=== PATIENT | female | born 2000 | race Two or more races ===

== ENCOUNTER 2025-03-03 14:24 | Outpatient (AMB) | payer BC, SELFPAY ==
[2025-03-03 14:44] VITALS: BP 127/77; PULSE 65; RESP 17; TEMP 36.7; O2SAT 98; BMI 25.9
--- NOTE | 2025-03-03 14:44 | OBCLNT_ITS ---
Vital Signs 03/03/25 14:44 Height 1.6 m Height Method Stated Weight 66.451 kg Weight Measurement Method Standing Scale BMI 25.9 BP 127/77 Blood Pressure Source Automatic Cuff Blood Pressure Location Right Upper Arm Position Sitting Respiration 17 Pulse 65 Pulse Source Monitor Temp 98.0 F Temp Source Temporal Artery Scan Pulse Oximetry (%) 98 Oxygen Delivery Method Room Air Allergies/Home Meds Allergies & Medications Allergies No Known Allergies Allergy (Verified 03/03/25 14:45) Medication Reconciliation doxylamine 10 mg-pyridoxine (vit B6) 10 mg tablet,delayed release (Diclegis) 1 tab PO BID #30 tabs 03/05/25 [Rx] ondansetron 4 mg disintegrating tablet 4 mg PO Q6H PRN nausea and vomiting #60 tabs 03/05/25 [Rx] Intake Visit Data Collection New Patient or Established: New Patient (never been to [facility]) Reason for Visit:: OBI Seen by Clinical Staff ONLY (RN/MA): No Compliance Review Specialist Required: No Do You Feel Safe at Home: Yes Authorities Contacted: N/A PCP or OBGYN visit in last 3 months: No Hx Now: Yes Are you currently on any form of Control: No Last menstrual period: 01/07/25 Pain Present Currently: No Pain Scale Used: Garzon-Foley/Numerical Pain scale:: 0 Smoking Status Smoking Status: Never smoker Questionnaires Covid-19 Vaccine Questionnaire Has patient been vacinated for Covid-19 Have you been vacinated for Covid-19: No PHQ-9 PHQ-2 Over the last 2 weeks, how often have you been bothered by any of the following problems? 1. Little interest or pleasure in doing things: not at all 2. Feeling down, depressed, or hopeless: not at all Total score: 0 PHQ-9 3. Trouble falling or staying asleep, or sleeping too much: Not at all 4. Feeling tired or having little energy: Not at all 5. Poor appetite or overeating: Not at all 6. Feeling bad about yourself - or that you are a failure or have let yourself or your family down: Not at all 7. Trouble concentrating on things, such as reading the newspaper or watching television: Not at all 8. Moving or speaking so slowly that other people could have noticed? - Or the opposite - being so fidgety or restless that you have been moving around a lot more than usual: not at all 9. Thoughts that you would be better off or of hurting yourself in some way: Not at all Total score: 0 If you checked off any problems, how difficult have these problems made it for you to do your work, take care of things at home, or get along with other people?: not difficult at all Source: Developed by Drs. Refugio Adams, Lillian Coronado, Ruben Ross and colleagues, with an educational shanta from [employer].. Depression screen completed yes Social History Living Situation History Marital Status: Lives With: Spouse Housing: House Housing Other:: Stays home. Spouse is a internet ecommerce specialist. Two sons age 1 1/2 and almost 4 Tobacco History Smoking Status: Never smoker Second Hand Smoke Exposure: No Alcohol History Alcohol Intake: Never Domestic Abuse History Do You Feel Safe at Home: Yes History of Present Illness HPI Narrative The patient is a 24 y/o who presents for a new OB appointment. She used to see me in [place] and I delivered her other two children. She is approximately 8 weeks . By LMP and US today her EDC is 10/10/25. LMP was 01/07/25. She is present with her spouse who is a internet ecommerce specialist. She reports constant nausea and does not want to eat. She feels like she wants to throw up all the time but rarely vomits. No weight loss. She has a 3 1/2 y/o son and 1 1/2 y/o son and both are busy. She stays home with them. She is ok with trying diglegis and zofran for N/V. OB Ultrasound Indication Indication: Size dates and viability OB Ultrasound Ultrasound technique: transabdominal Gestational sac assessment: Presence, location, size, shape: There is a live IUP with a CRL of 2.04 cm corresponding to 8 weeks and 4 days and an EDC of 10/10/25. 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 Had a pap last year. No VB or cramping. Fairly severe nausea with very little vomiting. Menstrual History Menstrual reliability: definite Flow: normal Menstrual regularity: irregular Monthly: Yes Age at menarche: 14 On control pills at conception: No Menstrual history comments: LMP 01/07/25 Associated symptoms (LMP): Reports nausea, fatigue and breast tenderness OB History : 3 Para: 2 # of Living Children: 2 Infection History & Risk Evaluation History of STDs: none HIV risk evaluation: low risk Hepatitis B risk evaluation: low risk Patient or partner has history of Genital Herpes: No Varicella/chicken pox status: unknown Genetic Screening & History Genetic Screening/Teratology Counseling - Includes patient, baby's father, or anyone in either family with: 1. Patient's age 35 years or older as of estimated date of delivery: No 2. Thalassemia (French, Chadian, Mediterranean, or Background); MCV less than 80: No 3. Neural Tube Defect (Meningomyelocele, Spina Bifida, or Anencephaly): No 4. Congenital Heart Defect: No 5. Down Syndrome: No 6. Steve-Sachs (Ashkenazi Pentecostal, Cajun, Upper Sorbian [place]): No 7. Koby Disease (Ashkenazi Pentecostal): No 8. Familial Dysautonomia (Ashkenazi Pentecostal): No 9. Sickle Cell Disease or Trait (): No 10. Hemophilia or other blood disorders: No 11. Muscular Dystrophy: No 12. Cystic Fibrosis: No 13. Ada's Chorea: No 14. Mental Retardation/Autism: No 15. Other inherited genetic or chromosomal disorder: No 16. Maternal Metabolic Disorder (EG,TYPE 1 Diabetes, PKU): No 17. Patient or baby's father had a child with defects not listed above: No 18. Recurrent loss or a stillbirth: No 19. Medications (including supplements, vitamins, herbs or otc drugs)/illicit/recreational drugs/alcohol since last menstrual period: No 20. Any other: No Infection History 1. Live with someone with TB or exposed to TB: No 2. Rash or viral illness since last menstrual period: No 3. Hepatitis B,C: No Other (see comments) Source: [employer] Review of Systems Constitutional Constitutional: Reports fatigue Gastrointestinal Gastrointestinal: Reports nausea Endocrine Endocrine: Reports fatigue Exam General Limitations: no limitations General Appearance: alert, in no apparent distress, cooperative, healthy appearing and well developed Neck Neck exam: Present normal inspection, full ROM and trachea midline Chest Chest inspection: Present normal inspection and symmetric chest wall rise Resp Respiratory exam: Present normal lung sounds bilaterally Card Cardiovascular exam: Present regular rate, normal rhythm and normal heart sounds Abdominal Abdominal exam: Present soft and normal bowel sounds Extremities Extremities exam: Present normal inspection and full ROM Psych Psychiatric exam: Present normal affect and normal mood Skin Skin exam: Present warm, dry, intact and normal color Office Procedures OB Clinic LOC & Office Proc's Nursing/Assessment Patient Status: Initial/New Patient OB Clinic Nursing Assessment: Medication Reconciliation, Update PMH in EMR and Vital Signs OB Clinic Coordination of Care: Complex Care and Chronic Disease 1-5, Consent,records obtained, informed consent, Education Simp Pt/Fam, Results/Orders obtained and Staff clarify orders Special Needs: Heart tones New Patient Charge New Patient Point Assignment: [id number] New Patient Point Charge: RADIATION ONCOLOGY NURSE Level 4 ([id number]) Results Urine HCG Urine HCG Positive Last Edit by Acacia Donnelly MA on 03/03/25 15:0 8 Assessment & Plan Diagnosis / Problem List (1) : Status: Acute Qualifiers: Weeks of gestation: 8 weeks Qualified Code(s): Z3A.08 - 8 weeks gestation of Plan: PT is 8 weeks EGA. PNC labs and US and NIPT ordered for [place] [facility]. For nausea, Dicligis and Zofran ordered. Follow up in 4 weeks.ON gummy PNV. No high risk factors. Had two uncomplicated NSVDs in the past. Additional Plan Follow Up: 4 Weeks
== END 2025-03-03 15:42 | disposition home or self-care (01) ==
PROVIDERS: Supervising Provider Obstetrics & Gynecology; Visit Provider Obstetrics & Gynecology
DX: O09.891 Supervision of other high risk pregnancies, first trimester (principal); O21.0 Mild hyperemesis gravidarum; Z3A.01 Less than 8 weeks gestation of pregnancy
CPT/HCPCS: 99204; G0463